=== PATIENT | female | born 1945 | race Caucasian/White ===

== ENCOUNTER 2018-10-17 08:33 | Day surgery (SDC) | payer MEDICARE ==
[~2018-10-17] VITALS: Ht 160 cm; Wt 71.1 kg
[~2018-10-17 08:33] MED LIST: ALBU8.5H8 INH; CARV-49 PO; FLUT1DIS4 INH; FURO-150 PO; LEVO500T2 PO; LEVO75TA PO; LISI-600 PO; LORA10TA7 PO; METF-436 PO; NICO-687 TD; POTA10TA36 PO; PRED10TA23 PO; ROSU10TA27 PO; SERT100T PO; SITA100T11 PO
[2018-10-17] MEDS ORDERED: acetylcysteine 200 MG/ml 4ml vial PO PRN (09:05)
[2018-10-17] MEDS ORDERED: normal saline 1,000 ML IV SCH (09:05)
[2018-10-17] MEDS: acetylcysteine 200 MG/ml 4ml vial PO SCH ×2 (09:40→17:33)
[2018-10-17] MEDS ORDERED: sodium bicarbonate (8.4%) inj. 150 ML in dextrose 5%-water 1,000 ML IV ONE (09:40)
[2018-10-17] MEDS ORDERED: iohexol 350MG/ML 100ml bottle IV ONE (10:23)
[2018-10-17 10:30] VITALS: BP 124/58
[2018-10-17] MEDS ORDERED: ASPI-1265 PO (11:05)
[2018-10-17] MEDS ORDERED: FURO-150 PO (11:05)
[2018-10-17] MEDS ORDERED: BUPR100T5 PO (11:05)
[2018-10-17] MEDS ORDERED: SITA100T11 PO (11:05)
[2018-10-17] MEDS ORDERED: LISI10TA4 PO (11:05)
--- NOTE | 2018-10-17 11:10 | NUR ---
Pt taken for CTA as ordered via W/C by radiology staff.
[2018-10-17] MEDS ORDERED: pneumococcal 23-VAL P-sac vacc 25 mcg/0.5ml vial IMVAC ONE (11:30)
--- NOTE | 2018-10-17 11:40 | NUR ---
Pt back from CTA via w/c. Hydration restarted as ordered.
[2018-10-17] MEDS ORDERED: MESSAGE TO NURSING PO NR (12:04)
== END 2018-10-17 17:45 | disposition home or self-care (01) ==
LOC: SSTAY O 08:33
PROVIDERS: ATTEND Internal Medicine Cardiovascular Disease
DX: I65.23 Occlusion and stenosis of bilateral carotid arteries (principal); Z23 Encounter for immunization
CPT/HCPCS: 70498; 82948; 90732; 96360; 96361; J7030; Q9967